=== PATIENT | male | born 1990 | race Caucasian/White ===

== ENCOUNTER 2018-06-09 14:12 | Emergency (ER) | payer OTHER ==
[2018-06-09 14:30] VITALS: BP 136/98
--- NOTE | 2018-06-09 16:18 | XRAY Report ---
Procedure Date: 06/09/2018 Accession Number: [id number] / [id number] Procedure: XR - Knee 4 View RT CPT Code: FULL RESULT: EXAM: RIGHT KNEE RADIOGRAPHY EXAM DATE: 06/09/2018 04:03 PM. CLINICAL HISTORY: Fall directly onto the patella. COMPARISON: None. TECHNIQUE: 4 views. FINDINGS: Bones: Normal. No fractures or bone lesions. Joints: Normal. No effusion. No subluxations. Soft Tissues: There is soft tissue swelling anterior to the patella IMPRESSION: Soft tissue swelling without fracture. RADIA
--- NOTE | 2018-06-09 16:37 | ED Physician Documentation ---
PD HPI LOWER EXT INJURY - Stated complaint Stated Complaint: R KNEE INJ/ BODYRASH - Chief complaint Chief Complaint: General - History obtained from History obtained from: Patient, Family - History of Present Illness PD HPI LOW EXT INJURY LOCATION: Right, Knee Type of injury: Blunt / blow Where injury occurred: Home Timing - onset: Last night Timing - duration: Hours Timing - details: Abrupt onset, Still present Improved by: Rest, Ice, Immobilization Worsened by: Moving, Palpating Associated symptoms: Swelling Contributing factors: No: Anticoagulated Similar symptoms before: Has not had sx before Recently seen: Not recently seen - Additional information Additional information: 27-year-old male was walking upstairs yesterday evening when he fell forward directly onto his kneecap on the right side. He has a significant amount of swelling on this and is unable to walk without a limp. He has a lot of pain with weightbearing and pain with flexion extension of the knee. His pain is centered over the prepatellar area. There is a complaint of a rash to the forearms hand legs and abdomen that has been present and variable for the past 5 months. The patient had some improvement with the use of steroid and antibiotic and the symptoms came back and have been variable. 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 Review of Systems Constitutional: denies: Fever Eyes: denies: Decreased vision Ears: denies: Ear pain Nose: denies: Congestion Throat: denies: Sore throat Respiratory: denies: Cough GI: denies: Vomiting Skin: reports: Rash Musculoskeletal: reports: Extremity pain, Joint pain, Joint swelling, Pain with weight bearing. denies: Neck pain, Back pain PD PAST MEDICAL HISTORY - Past Medical History Past Medical History: No - Past Surgical History Past Surgical History: No - Present Medications Home Medications: Ambulatory Orders Medication Instructions Recorded Confirmed predniSONE [Deltasone] 10 mg PO DAILY #26 tablet 06/09/18 - Allergies Allergies/Adverse Reactions: Allergies Allergy/AdvReac Type Severity Reaction Status Date / Time No Known Drug Allergies Allergy Verified 06/09/18 14:30 - Social History Does the pt smoke?: No Smoking Status: Never smoker Does the pt drink ETOH?: No Does the pt have substance abuse?: No - Immunizations Immunizations are current?: Yes - POLST Patient has POLST: No PD ED PE NORMAL - Vitals Vital signs reviewed: Yes (tachy and hypertensive ) - General General: Alert and oriented X 3, No acute distress, Well developed/nourished - HEENT HEENT: Atraumatic, PERRL, EOMI - Neck Neck: Supple, no meningeal sign - Respiratory Respiratory: No respiratory distress - Derm Derm: Normal color, Warm and dry, Other (There is a fine non-specific rash without surrounding erythema to the forearms, hands and thighs as well as the lower abdomen near the belt line, the back is spared. The rash itself is consistent with a contact irritant. ) - Extremities Extremities: No deformity, Other (There is swelling and point tenderness over the patella and the infrapatellar area specifically. The ligaments are stable to testing and the knee has good ROM to passive testing. He is not able to extend the knee without a lot of pain. 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, No motor deficit, No sensory deficit, Normal speech Eye Opening: Spontaneous Motor: Obeys Commands Verbal: Oriented GCS Score: 15 - Psych Psych: Normal mood, Normal affect Results - Vitals Vitals: Vital Signs - 24 hr 06/09/18 14:28 Temperature 37.3 C Heart Rate 108 H Respiratory 16 Rate Blood Pressure 136/98 H O2 Saturation 100 Oxygen O2 Source Room air - Rads (name of study) right knee Radiology: Prelim report reviewed (Impression: Soft tissue swelling without fracture.), EMP read indepedently, See rad report PD MEDICAL DECISION MAKING - ED course Complexity details: reviewed results, re-evaluated patient, considered differential, d/w patient, d/w family ED course: 27 y/o male with a prepatellar contusion and no evidence of a fracture has trouble walking and a lot of swelling. He is placed into a knee immobilizer and we will take him off work. - Sepsis Event Vital Signs: Vital Signs - 24 hr 06/09/18 14:28 Temperature 37.3 C Heart Rate 108 H Respiratory 16 Rate Blood Pressure 136/98 H O2 Saturation 100 Oxygen O2 Source Room air Departure - Departure Disposition: 01 Home, Self Care Clinical Impression: Patellar contusion Qualifiers: Encounter type: initial encounter Laterality: right Qualified Code(s): S80.01XA - Contusion of right knee, initial encounter Contact dermatitis Qualifiers: Contact dermatitis type: irritant Contact dermatitis trigger: oil Qualified Code(s): L24.1 - Irritant contact dermatitis due to oils and greases Condition: Stable Instructions: ED Dermatitis Contact, ED Sprain Knee Follow-Up: [facility] [Provider Group] Roderick Martinez MD [Primary Care Provider] - [facility] [Provider Group] Prescriptions: predniSONE [Deltasone] 10 mg PO DAILY #26 tablet Forms: Activity restrictions
== END 2018-06-09 16:47 | disposition home or self-care (01) ==
LOC: ED 14:12
DX: S80.01XA Contusion of right knee, initial encounter (principal); W10.8XXA Fall (on) (from) other stairs and steps, initial encounter; Y92.009 Unspecified place in unspecified non-institutional (private) residence as the place of occurrence of the external cause
CPT/HCPCS: 99282; 99283

== ENCOUNTER 2020-01-09 08:00 | Outpatient (CLI) | payer OTHER | END 2020-01-09 23:59 | disposition home or self-care (01) | LOC: LAB.R 08:00 | PROVIDERS: ATTEND Registered Nurse | DX: J02.9 Acute pharyngitis, unspecified (principal) | CPT/HCPCS: 87070 ==

== ENCOUNTER 2020-01-29 14:58 | Emergency (ER) | payer OTHER ==
--- NOTE | 2020-01-29 15:21 | ED Physician Documentation ---
PD HPI ABD PAIN - Stated complaint Stated Complaint: ABD PAIN - Chief complaint Chief Complaint: Abd Pain - History obtained from History obtained from: Patient (29 yo M w a report of prior htn, now no longer on meds, presents with mid epigastric and RUQ abd pain, nausea, and approx 1 month of diarrhea. Pt states abd pain started a few days ago after a heavy period of alcohol consumptions--admits to drinking more heavily recently and drinks to some degree almost everyday. Diarrhea present everyday for the last month, ~5 soft/watery but non-bloody stools a day. He is also feeling periods of shortness of breath, as though he is taking deep breaths but nothing is happening. Occasional dry mild cough, no wheezing. No fever, chills, chest pain, vomiting, dysuria or other urinary sx. Pt denies hx/o liver dz, prior pancreatitis, lung dz.) Review of Systems Constitutional: reports: Reviewed and negative Eyes: reports: Reviewed and negative Ears: reports: Reviewed and negative Nose: reports: Reviewed and negative Throat: reports: Reviewed and negative Cardiac: reports: Reviewed and negative Respiratory: reports: Dyspnea, Cough. denies: Hemoptysis, Wheezing GI: reports: Abdominal Pain, Nausea, Diarrhea. denies: Vomiting, Constipation, Hematemesis, Bloody / black stool : reports: Reviewed and negative Skin: reports: Reviewed and negative Musculoskeletal: reports: Reviewed and negative Neurologic: reports: Reviewed and negative Psychiatric: reports: Reviewed and negative PD PAST MEDICAL HISTORY - Past Surgical History Past Surgical History: No - Present Medications Home Medications: Ambulatory Orders Medication Instructions Recorded Confirmed No Known Home Medications 01/29/20 01/29/20 - Allergies Allergies/Adverse Reactions: Allergies Allergy/AdvReac Type Severity Reaction Status Date / Time No Known Drug Allergies Allergy Verified 01/29/20 15:06 - Social History Does the pt smoke?: No Smoking Status: Never smoker Does the pt drink ETOH?: No Does the pt have substance abuse?: No - Immunizations Immunizations are current?: Yes - POLST Patient has POLST: No PD ED PE NORMAL - Vitals Vital signs reviewed: Yes - General General: Alert and oriented X 3, No acute distress, Well developed/nourished - HEENT HEENT: Atraumatic, Moist mucous membranes, Pharynx benign - Neck Neck: Supple, no meningeal sign, No JVD - Cardiac Cardiac: RRR, Other (loud 3-4/6 systolic murmur) - Respiratory Respiratory: No respiratory distress, Clear bilaterally - Abdomen Abdomen: Normal bowel sounds, Other (very tender RUQ and mid epigastric, withdraws from the pain; no lower abd pain. ) - Back Back: No CVA TTP, No spinal TTP - Derm Derm: Normal color, No rash - Extremities Extremities: No deformity, No tenderness to palpate, Normal ROM s pain, No edema, No calf tenderness / cord - Neuro Neuro: Alert and oriented X 3 Eye Opening: Spontaneous Motor: Obeys Commands Verbal: Oriented GCS Score: 15 - Psych Psych: Normal mood, Normal affect Results - Vitals Vitals: Vital Signs - 24 hr 01/29/20 15:03 Temperature 36 C L Heart Rate 72 Respiratory 16 Rate Blood Pressure 119/92 H O2 Saturation 97 Oxygen O2 Source Room air - Labs Labs: Laboratory Tests 01/29/20 01/29/20 01/29/20 15:30 15:30 15:30 WBC 7.8 RBC 5.03 Hgb 15.5 Hct 45.3 MCV 90.1 MCH 30.8 MCHC 34.2 RDW 13.8 Plt Count 248 MPV 10.1 Neut # (Auto) 4.4 Lymph # (Auto) 2.6 Tyrrell # (Auto) 0.6 Eos # (Auto) 0.1 Baso # (Auto) 0.1 Absolute Nucleated RBC 0.00 Nucleated RBC % 0.0 Sodium 136 Potassium 3.7 Chloride 105 Carbon Dioxide 21 Anion Gap 10.0 BUN 22 H Creatinine 1.4 H Estimated GFR (MDRD) 59 L Glucose 114 H Calcium 8.3 L Total Bilirubin 2.1 H AST 29 ALT 51 Alkaline Phosphatase 52 Total Protein 6.5 L Albumin 3.7 Globulin 2.8 Albumin/Globulin Ratio 1.3 Lipase 39 38 PD MEDICAL DECISION MAKING - ED course Complexity details: reviewed results, re-evaluated patient, considered differential, d/w patient, other (d/w ED attending)
[2020-01-29 15:34] LABS: BASOPHILS # (AUTO) 0.1 10^3/uL (0.0-0.1); BASOPHILS % (AUTO) 0.8 %; EOSINOPHILS # (AUTO) 0.1 10^3/uL (0.0-0.7); EOSINOPHILS % (AUTO) 1.7 %; HGB - HEMOGLOBIN 15.5 g/dL (14.0-18.0); LYMPHOCYTES # (AUTO) 2.6 10^3/uL (1.5-3.5); LYMPHOCYTES % (AUTO) 34.1 %; MEAN CORPUSCULAR HEMOGLOBIN 30.8 pg (27.0-31.0); MEAN CORPUSCULAR HGB CONC 34.2 g/dL (32.0-36.0); MEAN CORPUSCULAR VOLUME 90.1 fL (80.0-94.0); MEAN PLATELET VOLUME 10.1 fL (7.4-11.4); MONOCYTES # (AUTO) 0.6 10^3/uL (0.0-1.0); MONOCYTES % (AUTO) 7.1 %; NEUTROPHILS # (AUTO) 4.4 10^3/uL (1.5-6.6); PLT - PLATELET COUNT 248 10^3/uL (130-450); RED BLOOD COUNT 5.03 10^6/uL (4.70-6.10); RED CELL DISTRIBUTION WIDTH 13.8 % (12.0-15.0); WHITE BLOOD COUNT 7.8 x10^3/uL (4.8-10.8)
[2020-01-29 15:52] LABS: ALBUMIN 3.7 g/dL (3.2-5.5); ALBUMIN/GLOBULIN RATIO 1.3 (1.0-2.2); BILIRUBIN,TOTAL 2.1 mg/dL (0.2-1.0); CALCIUM 8.3 mg/dL (8.5-10.3); CREATININE 1.4 mg/dL (0.6-1.2); TOTAL PROTEIN 6.5 g/dL (6.7-8.2)
[2020-01-29] MEDS ORDERED: SODIUM CHLORIDE 0.9% 1,000 ML IV ONE (15:58)
[2020-01-29] MEDS ORDERED: IOVERSOL 320 100 ML VIAL IVP ONE ×2 (16:23→16:53)
[2020-01-29 16:46] LABS: GLUCOSE, URINE (UA) NEGATIVE (NEGATIVE); KETONES,URINE (UA) NEGATIVE (NEGATIVE); LEUKOCYTE ESTERASE, URINE NEGATIVE (NEGATIVE); NITRITE,URINE NEGATIVE (NEGATIVE); OCCULT BLOOD,URINE NEGATIVE (NEGATIVE); PROTEIN,URINE 30 mg/dL (NEGATIVE); UROBILINOGEN,URINE 1 (NORMAL) E.U./dL (NORMAL)
[2020-01-29 16:51] LABS: BILIRUBIN,URINE NEGATIVE (NEGATIVE); CLARITY,URINE CLEAR (CLEAR); ICTOTEST,URINE NEGATIVE
[2020-01-29 16:57] LABS: BACTERIA,URINE None Seen /HPF (None Seen); RBC,URINE None Seen /HPF (0-5); SQUAMOUS EPITHELIAL CELL,UR NONE SEEN (<= Few)
[2020-01-29 16:58] LABS: MUCUS,URINE Few Strands
--- NOTE | 2020-01-29 17:38 | CT Report ---
Reason: RUQ/epi pain, distension Procedure Date: 01/29/2020 Accession Number: [id number] / [id number] Procedure: CT - Abdomen/Pelvis W CPT Code: Final Report FULL RESULT: EXAM: CT ABDOMEN AND PELVIS EXAM DATE: 01/29/2020 04:37 PM. CLINICAL HISTORY: Abdominal pain and distention COMPARISONS: ABD/PEL 03/17/2007 11:49 AM. TECHNIQUE: Routine helical CT imaging was performed through the abdomen and pelvis. IV contrast: OPTIRAY 320. Enteric contrast: No. Reconstructions: Coronal and sagittal. In accordance with CT protocol optimization, one or more of the following dose reduction techniques were utilized for this exam: automated exposure control, adjustment of mA and/or KV based on patient size, or use of iterative reconstructive technique. FINDINGS: There is a small layering right pleural effusion. Dependent atelectasis is seen in both lung bases. The heart is enlarged. There is no pericardial effusion. There is reflux of contrast into the hepatic veins. The gallbladder is partially contracted. No biliary dilatation is seen. There is no focal intrahepatic mass. The liver is enlarged measuring 19.8 cm. The spleen is normal in size and appearance. There is mild edema in the pancreatic head with mild surrounding inflammation surrounding the duodenum and extending along the inferior right hepatic lobe. No duodenal wall thickening is seen. Small volume ascites is also seen in this region which extends along the right paracolic gutter. The adrenal glands are normal. A hypodense lesion in the upper pole of the right kidney measures 1.9 x 2.3 x 1.6 cm and is indeterminate. It measured 1.5 x 1.0 cm on the prior exam. No hydronephrosis or perinephric edema is seen. The appendix is normal. The inflammation and ascites in the. Hepatic region extends adjacent to the hepatic flexure; however, there is no associated wall thickening or edema in the colon. Scattered diverticula are seen in the colon without evidence of diverticulitis. There is no evidence of bowel obstruction. No free intraperitoneal air is seen. There is no lymphadenopathy. The abdominal aorta is normal in course and caliber. The bladder is normal. Small volume ascites is seen in the pelvis. The prostate gland is normal. No suspicious lytic or blastic lesions are seen. The spinal alignment is normal. No acute fracture is seen. IMPRESSION: 1. Mild edema in the pancreatic head with adjacent inflammation and small volume ascites which extends laterally along the right perihepatic region, paracolic gutter, and into the pelvis. The appearance is most consistent with acute pancreatitis. 2. Cardiomegaly with left ventricular dilatation and reflux of contrast into the hepatic veins suggesting an underlying cardiomyopathy. 3. Hepatomegaly. 4. Small right pleural effusion. 5. Indeterminant hypoattenuating lesion in the upper pole of the right kidney. This may represent a cyst as it was present on the 2007 examination but has slightly increased in size. RADIA
[2020-01-29] MEDS ORDERED: chlordiazePOXIDE 25 MG CAPSULE PO STA (17:50)
[2020-01-29] MEDS ORDERED: HYDROmorphone 2 MG/ML VIAL IVP STA (17:50)
[2020-01-29 18:03] VITALS: BP 147/97
== END 2020-01-29 18:20 | disposition home or self-care (01) ==
LOC: ED 14:58
DX: F10.188 Alcohol abuse with other alcohol-induced disorder (principal); K85.20 Alcohol induced acute pancreatitis without necrosis or infection; R01.1 Cardiac murmur, unspecified
CPT/HCPCS: 36415; 74177; 80053; 81001; 83690; 85025; 96361; 96374; 99284; 99285; A9270; J1170; Q9967; 81003; 87086

== ENCOUNTER 2021-03-03 14:16 | Outpatient (CLI) | payer OTHER | END 2021-03-03 14:17 | disposition left against medical advice (07) | LOC: EMS 14:16 | DX: R07.9 Chest pain, unspecified (principal) ==

== ENCOUNTER 2021-06-03 17:03 | Outpatient (CLI) | payer OTHER | END 2021-06-03 17:04 | disposition home or self-care (01) | LOC: COV 17:03 | PROVIDERS: ATTEND Family Medicine | DX: R05 Cough (principal); R07.0 Pain in throat; R09.81 Nasal congestion; J34.89 Other specified disorders of nose and nasal sinuses; Z20.822 Contact with and (suspected) exposure to COVID-19 ==

== ENCOUNTER 2021-12-20 20:06 | Outpatient (CLI) | payer OTHER | END 2021-12-20 20:07 | disposition short-term general hospital (02) | LOC: EMS 20:06 | DX: R07.89 Other chest pain (principal); R20.2 Paresthesia of skin; R94.31 Abnormal electrocardiogram [ECG] [EKG] | CPT/HCPCS: A0425; A0427 ==

== ENCOUNTER 2022-04-11 17:00 | Outpatient (CLI) | payer OTHER ==
[2022-04-11 17:24] LABS: CALCIUM 9.5 mg/dL (8.5-10.3); CREATININE 1.2 mg/dL (0.6-1.2); POTASSIUM 4.1 mmol/L (3.5-5.0)
== END 2022-04-11 17:01 | disposition home or self-care (01) ==
LOC: LAB 17:00
PROVIDERS: ATTEND Hospitalist
DX: I50.22 Chronic systolic (congestive) heart failure (principal)
CPT/HCPCS: 36415; 80048

== ENCOUNTER 2023-01-31 08:00 | Outpatient (CLI) | payer OTHER | END 2023-01-31 23:59 | disposition home or self-care (01) | LOC: LAB.S 08:00 | PROVIDERS: ATTEND Physician Assistant | DX: M54.12 Radiculopathy, cervical region (principal) | CPT/HCPCS: 87070 ==

== ENCOUNTER 2023-02-21 10:31 | Emergency (ER) | payer OTHER ==
--- NOTE | 2023-02-21 11:55 | ED Physician Documentation ---
History of Present Illness - Stated complaint Stated Complaint: GROWTH ON RT SIDE - Chief complaint Chief Complaint: General - Additonal information Additional information: 32-year-old male presents emergency department for evaluation of right flank pain. States has been present for about 3 to 4 months. No inciting or exacerbating factors. Not always present. Has not taken anything for it. He is concerned because when he was seen here in [address] scan that he describes showing a polyp. My review that CT scan is that it could have been a right renal cyst. Patient never followed up with PCP for evaluation of this. At that time he was drinking but patient reports he has not drank For at least 3 years. He has no fevers, night sweats or weight loss. No nausea or vomiting. No hematuria, black or bloody stools. He has not taken anything [id number] including Tylenol or ibuprofen. Review of Systems Constitutional: denies: Fever, Chills Cardiac: reports: Reviewed and negative Respiratory: reports: Reviewed and negative GI: reports: Abdominal Pain : reports: Reviewed and negative Skin: reports: Reviewed and negative Musculoskeletal: reports: Reviewed and negative PD PAST MEDICAL HISTORY - Past Medical History Past Medical History: Yes - Past Surgical History Past Surgical History: No - Present Medications Home Medications: Ambulatory Orders Medication Instructions Recorded Confirmed Hydrocodone/Acetaminophen 1 - 2 each PO Q6H PRN #14 tablet 01/29/20 [Hydrocodon-Acetaminophen 5-325] chlordiazePOXIDE [Librium] 25 mg PO Q6H 3 Days #12 capsule 01/29/20 - Allergies Allergies/Adverse Reactions: Allergies Allergy/AdvReac Type Severity Reaction Status Date / Time No Known Drug Allergies Allergy Verified 02/21/23 10:41 - Social History Does the pt smoke?: No Smoking Status: Never smoker Does the pt drink ETOH?: No Does the pt have substance abuse?: No - Immunizations Immunizations are current?: Yes - POLST Patient has POLST: No PD ED PE NORMAL - General General: Alert and oriented X 3, No acute distress - HEENT HEENT: Atraumatic, Moist mucous membranes - Neck Neck: Supple, no meningeal sign, No adenopathy - Cardiac Cardiac: RRR, No murmur - Respiratory Respiratory: No respiratory distress - Abdomen Abdomen: Normal bowel sounds, Soft, Non tender (No CVA tenderness was elicited. I was unable to reproduce flank or lower abdominal tenderness) - Derm Derm: Normal color, Warm and dry, No rash - Extremities Extremities: No deformity - Neuro Neuro: Alert and oriented X 3 Eye Opening: Spontaneous Motor: Obeys Commands Verbal: Oriented GCS Score: 15 Results - Vitals Vitals: Vital Signs - 24 hr 02/21/23 10:38 Temperature 36.0 C L Heart Rate 70 Respiratory 16 Rate Blood Pressure 147/95 H O2 Saturation 97 Oxygen O2 Source Room air PD Medical Decision Making - ED course Complexity details: considered differential, d/w patient ED course: This is a very well-appearing 32-year-old male who presents emergency department for evaluation of 3 to 4 months right flank pain. Denies hematuria, night sweats weight loss. Has not taken any [id number]-[id number] medications. Not worse with movement. I was unable to reproduce the pain On my exam. The differential was rather large including enlarging renal cyst, ureterolithiasis nephrolithiasis, tumor mass or even cancer. After lengthy discussion with the patient I did offer her labs and repeat imaging with his understanding that he would need to follow closely with his PCP. However he elected not to pursue labs or imaging today in the emergency department and simply stated if I have to follow-up with my doctor anyway I might as well do all of that with him. Given the unremarkable exam and stable vitals I feel that this is an appropriate plan. As such the patient is discharged home in stable condition Departure - Departure Disposition: 01 Home, Self Care Clinical Impression: Right flank pain Condition: Stable Record reviewed to determine appropriate education?: Yes Comments: Deng you came to the emergency department because for about 3 to 4 months you have been having pain in your right flank. You are concerned because you feel this may be correlated with the cyst seen in the right kidney on the CT scan in 2019. We did discuss the option of obtaining labs and repeat CT imaging and having you follow-up with your primary care provider but you declined that at this time. I am not certain what the cause or source of your pain is today. I do recommend Ibuprofen or Tylenol [id number] to see if it makes your pain better. However no matter what it is important you follow closely with your primary care doctor as you may benefit from outpatient labs and imaging which you have declined today. Do not hesitate to return to the ER for any emergent concerns, fevers, uncontrolled pain, uncontrolled vomiting, black or bloody stools
[2023-02-21 11:58] VITALS: BP 144/88
== END 2023-02-21 11:56 | disposition home or self-care (01) ==
LOC: ED 10:31
DX: R10.9 Unspecified abdominal pain (principal)
CPT/HCPCS: 99281; 99283

== ENCOUNTER 2024-01-31 08:00 | Outpatient (CLI) | payer OTHER ==
--- NOTE | 2024-01-31 18:49 | XRAY Report ---
PROCEDURE: Chest 2V INDICATIONS: FOCAL PNEUMONIA TECHNIQUE: 2 views of the chest were acquired. COMPARISON: Chest radiograph on February 12, 2014. FINDINGS: Surgical changes and devices: Cardiac defibrillator electrodes terminate in expected positions. Lungs and pleura: No pleural effusions or pneumothorax. Lungs are clear. Mediastinum: Normal mediastinal contours. Heart size is mildly enlarged. Bones and chest wall: No suspicious bony lesions. Overlying soft tissues appear unremarkable. IMPRESSION: No acute cardiopulmonary process. Reviewed by: Jorge Echavarria MD on 01/31/2024 6:48 PM PDT Approved by: Jorge Echavarria MD on 01/31/2024 6:48 PM PDT Station ID: [id number]
== END 2024-01-31 23:59 | disposition home or self-care (01) ==
LOC: DI.S 08:00
PROVIDERS: ATTEND Emergency Medicine
DX: J18.8 Other pneumonia, unspecified organism (principal)

== ENCOUNTER 2024-02-14 08:00 | Outpatient (CLI) | payer OTHER ==
--- NOTE | 2024-02-15 13:51 | XRAY Report ---
PROCEDURE: Chest 2V INDICATIONS: FOCAL PNEUMONIA TECHNIQUE: 2 views of the chest were acquired. COMPARISON: Chest x-ray 01/31/2024 FINDINGS: Surgical changes and devices: Pacemaker. Lungs and pleura: No pleural effusions or pneumothorax. Lungs are clear. Mediastinum: Mediastinal contours appear normal. Heart size is normal. Bones and chest wall: No suspicious bony lesions. Overlying soft tissues appear unremarkable. IMPRESSION: No acute cardiopulmonary process. Reviewed by: Heidi Reyes MD on 02/15/2024 1:49 PM PDT Approved by: Heidi Reyes MD on 02/15/2024 1:49 PM PDT Station ID: [id number]
== END 2024-02-14 23:59 | disposition home or self-care (01) ==
LOC: DI.S 08:00
PROVIDERS: ATTEND Registered Nurse
DX: J18.9 Pneumonia, unspecified organism (principal)